=== PATIENT | female | born 1975 | race Caucasian/White ===

== ENCOUNTER 2018-04-17 14:53 | Emergency (ER) | payer OTHER ==
[~2018-04-17] VITALS: Ht 152.4 cm; Wt 44.4 kg
[2018-04-17] MEDS ORDERED: SERTRALINE HCL50 MG PO (15:05)
[2018-04-17 15:26] LABS: ABSOLUTE BASOPHILS 0.1 thou/uL (0.0-0.2); ABSOLUTE EOSINOPHILS 0.1 thou/uL (0.0-0.7); ABSOLUTE LYMPHOCYTES 1.5 thou/uL (0.8-5.3); ABSOLUTE MONOCYTES 1.1 thou/uL (0.0-1.2); ABSOLUTE NEUTROPHILS 11.8 thou/uL (1.6-8.1); BASOPHILS 0.4 %; EOSINOPHILS 0.9 %; HEMATOCRIT 39.3 % (37.0-47.0); HEMOGLOBIN 12.7 gm/dL (12.0-15.0); LYMPHOCYTES 10.2 %; MCH 28.3 pg (26.0-34.0); MCHC 32.3 g/dL (28.0-37.0); MCV 87.4 fL (80.0-100.0); MONOCYTES 7.5 %; NUCLEATED RBCS 0 /100WBC; PLATELET COUNT* 270 thou/uL (150-400); RDW-CV 13.9 % (10.5-14.5); WBC 14.5 thou/uL (4.0-11.0)
[2018-04-17 15:30] LABS: URINE BLOOD 2+ (Negative); URINE CLARITY SL CLOUDY; URINE COLOR DARK YELLOW; URINE GLUCOSE-RANDOM NEGATIVE (Negative); URINE LEUKOCYTES NEGATIVE (Negative); URINE NITRITE POSITIVE (Negative); URINE PROTEIN 1+ (Negative); URINE SPECIFIC GRAVITY >= 1.030 (1.005-1.030)
[2018-04-17 15:33] LABS: ANION GAP 11 mmol/L (7-16); BUN 8 mg/dL (7-18); CALCIUM 8.7 mg/dL (8.5-10.1); CHLORIDE 103 mmol/L (98-107); CO2 25 mmol/L (21-32); CREATININE 0.8 mg/dL (0.6-1.3); GLUCOSE 84 mg/dL (70-99); SODIUM 139 mmol/L (136-145)
[2018-04-17 15:35] LABS: URINE BILIRUBIN 2+ (Negative); URINE KETONES 3+ (Negative)
[2018-04-17 15:36] LABS: ACETEST (KETONE CONFIRMATORY) Moderate (Negative); ICTOTEST (BILI CONFIRMATORY) Positive (Negative)
[2018-04-17 15:41] LABS: AMP/METHAMP POSITIVE (Negative); BARBITURATES Negative (Negative); BENZODIAZEPINES Negative (Negative); COCAINE Negative (Negative); METHADONE Negative (Negative); OPIATES POSITIVE (Negative); PCP Negative (Negative); THC POSITIVE (Negative)
[2018-04-17 15:43] LABS: BACTERIA >30 Many /HPF (None Seen); MUCUS 4-6 Moderate strn/LPF (None Seen); SQUAMOUS 4-10 Moderate /LPF (0-3); URINE RBC 0-2 Rare /HPF (0-2); URINE WBC 0-5 Rare /HPF (0-5)
[2018-04-17 15:44] LABS: ALBUMIN 3.5 g/dL (3.4-5.0); ALKALINE PHOSPHATASE 70 U/L (46-116); NT-PRO BRAIN NAT PEPTIDE 58 pg/mL (<300); SGOT 14 U/L (15-37); SGPT 17 U/L (30-65); TOTAL BILIRUBIN 0.5 mg/dL (<0.1-1.0); TOTAL PROTEIN 7.1 g/dL (6.4-8.2); TROPONIN-I LEVEL <0.06 ng/mL (<0.06)
[2018-04-17 15:44] LABS: CRYSTALS None Seen /LPF (None Seen); HYALINE CASTS 4-10 Moderate /LPF (None Seen)
[2018-04-17] MEDS ORDERED: VISTARIL 25 MG25 M1 PO (17:51)
[2018-04-17 18:02] VITALS: BP 122/82
--- NOTE | 2018-04-20 09:48 | EKG ---
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 : 1975 Requested By: Haydee Vines Order Number: [id number] MD: Diaz Angel Measurements Intervals [place] Rate: 96 P: 72 [place]: 108 QRS: 76 QRSD: 78 T: 34 QT: 356 QTc: 450 Interpretive Statements Sinus rhythm Short [place] interval Biatrial enlargement Minimal ST depression, inferior leads No previous ECG available for comparison Electronically Signed On 04-20-2018 9:48:04 WIRELESS STORE MANAGER by Diaz Angel [email or web address] <ELECTRONICALLY SIGNED> By: Diaz Angel MD, [facility] 04/20/18 0948 1505 1505 Diaz Angel MD, FACC /EPI
--- NOTE | 2018-04-20 09:49 | EKG ---
[place] [address] ELECTROCARDIOGRAM REPORT Name: KOFI SULLIVAN Room: [facility]#: [id number] Admission: 04/17/18 Attend Phys: Discharge: 04/17/18 Date of : 79 Report #: [id number] THIS REPORT FOR: //name// [facility] ED Test Date: 2018-04-17 Test Time: 17:01:43 Pat Name: KOFI SULLIVAN Department: Room: Gender: F Certified Surgical Tech/First Assistant: Catracho LOPES : 1975 Requested By: Haydee Vines Order Number: [id number] MD: Diaz Angel Measurements Intervals [place] Rate: 73 P: 67 MN: 117 QRS: 74 QRSD: 86 T: 15 QT: 404 QTc: 446 Interpretive Statements Sinus rhythm Borderline short [place] interval Minimal ST depression, inferior leads Electronically Signed On 04-20-2018 9:48:58 HEAVY EQUIPMENT RENTAL MANAGER by Diaz Angel [email or web address] <ELECTRONICALLY SIGNED> By: Diaz Angel MD, [facility] 04/20/18 0948 1701 1701 Diaz Angel MD, FACC /EPI
== END 2018-04-17 18:02 | disposition home or self-care (01) ==
LOC: M.ERS 14:53
PROVIDERS: Nurse Practitioner
DX: R55 Syncope and collapse (principal); R82.71 Bacteriuria

== ENCOUNTER 2018-09-11 00:36 | Emergency (ER) | payer OTHER ==
[~2018-09-11] VITALS: Ht 152.4 cm; Wt 38.6 kg
[~2018-09-11 00:36] MED LIST: SERTRALINE HCL50 MG PO; VISTARIL 25 MG25 M1 PO
[2018-09-11 01:01] LABS: ABSOLUTE EOSINOPHILS 0.2 thou/uL (0.0-0.7); ABSOLUTE LYMPHOCYTES 2.8 thou/uL (0.8-5.3); BASOPHILS 0.4 %; EOSINOPHILS 1.5 %; HEMATOCRIT 32.7 % (37.0-47.0); HEMOGLOBIN 10.8 gm/dL (12.0-15.0); LYMPHOCYTES 25.5 %; MCHC 33.1 g/dL (28.0-37.0); MCV 84.7 fL (80.0-100.0); MONOCYTES 9.4 %; MPV 9.4 fl. (7.2-11.1); NUCLEATED RBCS 0 /100WBC; PLATELET COUNT* 211 thou/uL (150-400); POLYS 63.2 %; RBC 3.86 mil/uL (4.20-5.00); RDW-CV 15.1 % (10.5-14.5); WBC 11.1 thou/uL (4.0-11.0)
[2018-09-11 01:19] LABS: ANION GAP 8 mmol/L (7-16); BUN 16 mg/dL (7-18); CALCIUM 8.3 mg/dL (8.5-10.1); CHLORIDE 110 mmol/L (98-107); CO2 27 mmol/L (21-32); CREATININE 0.7 mg/dL (0.6-1.3); GLUCOSE 89 mg/dL (70-99); POTASSIUM 4.8 mmol/L (3.5-5.1); SODIUM 145 mmol/L (136-145); TROPONIN-I LEVEL <0.06 ng/mL (<0.06)
[2018-09-11 01:21] LABS: ALBUMIN 3.2 g/dL (3.4-5.0); ALKALINE PHOSPHATASE 57 U/L (46-116); NT-PRO BRAIN NAT PEPTIDE 103 pg/mL (<300); SGOT 19 U/L (15-37); SGPT 24 U/L (30-65); TOTAL BILIRUBIN 0.1 mg/dL (<0.1-1.0); TOTAL PROTEIN 6.2 g/dL (6.4-8.2)
[2018-09-11 02:15] VITALS: BP 132/74
--- NOTE | 2018-09-11 10:15 | EKG ---
[place] [address] ELECTROCARDIOGRAM REPORT Name: KOFI CRANE Room: [facility]#: [id number] Admission: 09/11/18 Attend Phys: Discharge: 09/11/18 Date of : [birth year] Report #: [id number] THIS REPORT FOR: //name// [facility] ED Test Date: 2018-09-11 Test Time: 01:05:59 Pat Name: KOFI CRANE Department: Room: Gender: F Shrimp Cleaner: TYRONE : 1975 Requested By: Brent Polk Order Number: [id number] MD: Diaz Angel Measurements Intervals [place] Rate: 80 P: 53 DE: 113 QRS: 72 QRSD: 90 T: 69 QT: 391 QTc: 451 Interpretive Statements Sinus rhythm Borderline short [place] interval Compared to ECG 04/17/2018 17:01:43 ST (T wave) deviation no longer present Electronically Signed On 09-11-2018 10:15:37 CDT by Diaz Angel [email or web address] <ELECTRONICALLY SIGNED> By: Diaz Angel MD, [facility] 09/11/18 1015 010 010 Diaz Angel MD, FACC /EPI
== END 2018-09-11 02:15 | disposition home or self-care (01) ==
LOC: M.ERS 00:36
PROVIDERS: Emergency Medicine Emergency Medical Services
DX: R06.02 Shortness of breath (principal); F32.9 Major depressive disorder, single episode, unspecified; F17.210 Nicotine dependence, cigarettes, uncomplicated; Z88.8 Allergy status to other drugs, medicaments and biological substances